=== PATIENT | female | born 1980 | race Caucasian/White ===

== ENCOUNTER 2016-08-12 20:27 | Emergency (ER) | payer MEDICAID, OTHER ==
[~2016-08-12 20:27] MED LIST: HYDR10SO PO; ZOFR4TAB3 SL
[2016-08-12 20:33] VITALS: BP 157/96; PULSE 107; RESP 20; TEMP 97.8; O2SAT 98
--- NOTE | 2016-08-12 20:49 | PD ---
HPI Chief Complaint: Anxiety Time Seen by Provider: 20:48 Travel History International Travel<30 days: No Contact w/Intl Traveler<30days: No Traveled to known affect area: No History of Present Illness HPI This 35-year-old female thinks she's been having a panic attack. She's been having some palpitations and fast heartbeat for a couple of days. Today she had some pain in her throat felt a little bit short of breath. The symptoms are resolving. She does have a history of panic attacks and has been on medications for the past but she is not sure what. Denies any drug use. There is no chance of PFSH Past Medical History Arthritis: No Blood Disorders: No Bipolar Disorder: Yes Anxiety: Yes Depression: Yes Heart Rhythm Problems: No Cancer: No Cardiac Catheterization: No High Cholesterol: No Chemotherapy: No Congestive Heart Failure: No Cerebrovascular Accident: No Diabetes: No (DENIES) Diminished Hearing: No Gastrointestinal Disorders: No Genitourinary: No Headaches: Yes Hypertension: No (DENIES) Immune Disorder: No Implanted Vascular Access Dvce: No Musculoskeletal: Yes (NECK STRAIN) Neurologic: Yes Psychiatric: Yes Reproductive: Yes (ENDOMETRIOSIS) Respiratory: No Immunizations Current: Yes Migraines: Yes Radiation Therapy: No Seizures: No LMP: MONTH AGO Menopausal: No : 3 Para: 3 Miscarriage: 0 : 0 Tubal Ligation: Yes (2005) Past Surgical History Abdominal Surgery: Yes (HERNIA REPAIR) Cardiac Surgery: No Coronary Artery Bypass Graft: No Ear Surgery: No Endocrine Surgery: No Eye Surgery: No Gynecologic Surgery: Yes (TUBAL LIGATION) Neurologic Surgery: No Oral Surgery: No Thoracic Surgery: No Other Surgery: Yes Social History Alcohol Use: Yes (OCCASIONALLY- mix drinks) Tobacco Use: No (quit 05/2014 smoked 1/2 pack every 2-3 days) Substance Use: No Allergies-Medications (Allergen,Severity, Reaction): Coded Allergies: Clindamycin (Verified Allergy, Severe, RASH, 08/12/16) Reported Meds & Prescriptions Reported Meds & Active Scripts Active No Active Prescriptions or Reported Medications Review of Systems General / Constitutional: No: Fever, Chills Eyes: No: Diploplia HENT: Positive: Headaches, Sore Throat Cardiovascular: Positive: Palpitations Respiratory: No: Cough Gastrointestinal: No: Vomiting, Diarrhea Skin: Positive Rash Hematologic/Lymphatic: No: Easy Bruising Physical Exam Narrative GENERAL: Well-developed female SKIN: Warm and dry. She is flushed and areas HEAD: Atraumatic. Normocephalic. EYES: Pupils equal and round. No scleral icterus. No injection or drainage. ENT: No nasal bleeding or discharge. Mucous membranes pink and moist. NECK: Trachea midline. No JVD. CARDIOVASCULAR: Regular rate and rhythm. No murmur appreciated. RESPIRATORY: No accessory muscle use. Clear to auscultation. Breath sounds equal bilaterally. GASTROINTESTINAL: Abdomen soft, non-tender, nondistended. Hepatic and splenic margins not palpable. MUSCULOSKELETAL: No obvious deformities. No clubbing. No cyanosis. No edema. NEUROLOGICAL: Awake and alert. No obvious cranial nerve deficits. Motor grossly within normal limits. Normal speech. PSYCHIATRIC: Appropriate mood and affect; insight and judgment normal. Data Data Last Documented VS Vital Signs Date Time Temp Pulse Resp B/P Pulse Ox O2 Delivery O2 Flow Rate FiO2 08/12/16 20:55 92 20 181/97 98 Room Air 08/12/16 20:33 97.8 Orders Complete Blood Count With Diff (08/12/16 20:48) Basic Metabolic Panel (Bmp) (08/12/16 20:48) Labs Laboratory Tests Test 08/12/16 20:55 White Blood Count 10.0 TH/MM3 Red Blood Count 4.63 MIL/MM3 Hemoglobin 13.5 GM/DL Hematocrit 39.5 % Mean Corpuscular Volume 85.3 FL Mean Corpuscular Hemoglobin 29.1 PG Mean Corpuscular Hemoglobin 34.1 % Concent Red Cell Distribution Width 13.4 % Platelet Count 343 TH/MM3 Mean Platelet Volume 7.6 FL Neutrophils (%) (Auto) 67.8 % Lymphocytes (%) (Auto) 23.4 % Monocytes (%) (Auto) 6.2 % Eosinophils (%) (Auto) 1.9 % Basophils (%) (Auto) 0.7 % Neutrophils # (Auto) 6.8 TH/MM3 Lymphocytes # (Auto) 2.3 TH/MM3 Monocytes # (Auto) 0.6 TH/MM3 Eosinophils # (Auto) 0.2 TH/MM3 Basophils # (Auto) 0.1 TH/MM3 CBC Comment DIFF FINAL Differential Comment Sodium Level 141 MEQ/L Potassium Level 3.7 MEQ/L Chloride Level 107 MEQ/L Carbon Dioxide Level 24.8 MEQ/L Anion Gap 9 MEQ/L Blood Urea Nitrogen 11 MG/DL Creatinine 0.90 MG/DL Estimat Glomerular Filtration 72 ML/MIN Rate Random Glucose 109 MG/DL Calcium Level 8.9 MG/DL [facility] Medical Decision Making Medical Screen Exam Complete: No Emergency Medical Condition: No Medical Record Reviewed: No Differential Diagnosis Differential includes anxiety, pharyngitis, Narrative Course Symptoms are consistent with anxiety. She appears quite stable at this time. His symptoms been going on for a couple of days but are subsiding. I will prescribe some Ativan in the event that the symptoms recur Diagnosis Primary Impression: Anxiety Scripts Lorazepam 1 Mg Tab1 Mg PO Q6H PRN (ANXIETY) #15 TAB Ref 0 Prov:Dev Zavala MD 08/12/16 Disposition: 01 DISCHARGE HOME Condition: Stable Dev Zavala MD Aug 12, 2016 20:49
[2016-08-12 20:55] VITALS: BP 181/97; PULSE 92; RESP 20; O2SAT 98
[2016-08-12 21:01] LABS: AUTOMATED NEUTROPHIL # 6.8 TH/MM3 (1.8-7.7); BASOPHIL # 0.1 TH/MM3 (0-0.2); BASOPHIL % 0.7 % (0.0-2.0); EOSINOPHIL # 0.2 TH/MM3 (0-0.4); EOSINOPHIL % 1.9 % (0.0-4.0); HEMATOCRIT 39.5 % (35.0-46.0); LYMPH % 23.4 % (9.0-44.0); LYMPHOCYTE # 2.3 TH/MM3 (1.0-4.8); MEAN CELL VOLUME 85.3 FL (80.0-100.0); MEAN CORPUSCULAR HEMOGLOBIN 29.1 PG (27.0-34.0); MEAN CORPUSCULAR HGB CONC 34.1 % (32.0-36.0); MONO % 6.2 % (0.0-8.0); NEUT % 67.8 % (16.0-70.0); PLATELET COUNT 343 TH/MM3 (150-450); RED BLOOD COUNT 4.63 MIL/MM3 (4.00-5.30); RED CELL DISTRIBUTION WIDTH 13.4 % (11.6-17.2)
[2016-08-12 21:08] LABS: HEMO FLAGS DIFF FINAL; POTASSIUM 3.7 MEQ/L (3.5-5.1)
[2016-08-12 21:11] LABS: BICARBONATE 24.8 MEQ/L (21.0-32.0)
[2016-08-12] MEDS ORDERED: LORA1TAB12 PO (21:22)
[2016-08-12] MEDS ORDERED: LORazepam 2 MG/ML VIAL IV PUSH ONE (21:30)
[2016-08-12 21:47] VITALS: BP 128/81; PULSE 81; RESP 18; O2SAT 98
--- NOTE | 2016-08-13 16:59 | EKG ---
Date Performed: 08/12/2016 Time Performed: 20:43:36 PTAGE: 35 years EKG: Sinus rhythm Compared to prior tracing no significant change Normal ECG PREVIOUS TRACING : 12/07/2014 16.20 DOCTOR: Aspen Ferreira Interpretating Date/Time 08/13/2016 16:55:59
== END 2016-08-12 22:14 | disposition home or self-care (01) ==
LOC: PHED 20:27
DX: F41.9 Anxiety disorder, unspecified (principal); R51 Headache; J02.9 Acute pharyngitis, unspecified
CPT/HCPCS: 80048; 85025; 93005; 96374; 99283; J2060

== ENCOUNTER 2016-11-07 20:07 | Emergency (ER) | payer MEDICAID, OTHER ==
[~2016-11-07] VITALS: Ht 160 cm; Wt 76.5 kg
[~2016-11-07 20:07] MED LIST changes: -HYDR10SO PO; +LORA1TAB12 PO; -ZOFR4TAB3 SL
[2016-11-07 20:48] VITALS: BP 131/91; PULSE 78; RESP 18; TEMP 98.9; O2SAT 99
[2016-11-07] MEDS ORDERED: LACTULOSE SYRUP 20 GM/30 ML CUP PO ONE (23:00)
[2016-11-07] MEDS ORDERED: SOD PHOSPHATE/SOD BIPHOSPHATE (ADULT) ENEMA 133ML RECTAL ONE (23:00)
[2016-11-07] MEDS ORDERED: LACT10SO PO (23:46)
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
[2016-11-08 00:15] VITALS: BP 130/78
== END 2016-11-08 00:15 | disposition home or self-care (01) ==
LOC: PHED 20:07
DX: K59.00 Constipation, unspecified (principal); Z98.51 Tubal ligation status; Z87.891 Personal history of nicotine dependence
CPT/HCPCS: 99283

== ENCOUNTER 2016-12-10 12:16 | Emergency (ER) | payer MEDICAID ==
[~2016-12-10] VITALS: Ht 160 cm; Wt 77.0 kg
[~2016-12-10 12:16] MED LIST changes: +LACT10SO PO; -LORA1TAB12 PO
[2016-12-10 12:20] VITALS: BP 167/89; PULSE 87; RESP 16; TEMP 98.2; O2SAT 99
[2016-12-10] MEDS ORDERED: MOTR200T4 PO (13:11)
[2016-12-10] MEDS ORDERED: ROBA500T PO (13:12)
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
== END 2016-12-10 13:24 | disposition home or self-care (01) ==
LOC: NEPK 12:16
DX: S16.1XXA Strain of muscle, fascia and tendon at neck level, initial encounter (principal); M62.838 Other muscle spasm; Z86.59 Personal history of other mental and behavioral disorders; Z87.39 Personal history of other diseases of the musculoskeletal system and connective tissue; Z86.69 Personal history of other diseases of the nervous system and sense organs; Z87.42 Personal history of other diseases of the female genital tract; Z87.891 Personal history of nicotine dependence; X58.XXXA Exposure to other specified factors, initial encounter
CPT/HCPCS: 99283

== ENCOUNTER 2016-12-27 13:27 | Emergency (ER) | payer MEDICAID ==
[~2016-12-27 13:27] MED LIST changes: -LACT10SO PO; +MOTR200T4 PO; +ROBA500T PO
[2016-12-27] MEDS ORDERED: SODIUM CHLOR 0.9% 1000 ML INJ 1,000 ML IV SCH (13:46)
[2016-12-27 13:59] VITALS: BP 108/76; PULSE 121; RESP 15; TEMP 100.7; O2SAT 96
[2016-12-27] MEDS ORDERED: SODIUM CHLORIDE 0.9% FLUSH 10 ML FLUSH IV FLUSH PRN (14:00)
[2016-12-27] MEDS ORDERED: KETOROLAC TROMETHAMINE 30 MG/ML (IVP) VIAL IVP ONE (14:00)
[2016-12-27] MEDS ORDERED: ONDANSETRON HCL 4 MG/2 ML VIAL IVP ONE (14:00)
[2016-12-27] MEDS ORDERED: SODIUM CHLOR 0.9% 1000 ML INJ 1,000 ML IV ONE (14:00)
[2016-12-27 14:10] VITALS: BP 118/72; PULSE 102; RESP 18; TEMP 99.2; O2SAT 96
[2016-12-27 14:16] LABS: AUTOMATED NEUTROPHIL # 7.8 TH/MM3 (1.8-7.7); BASOPHIL # 0.1 TH/MM3 (0-0.2); BASOPHIL % 0.8 % (0.0-2.0); EOSINOPHIL % 0.1 % (0.0-4.0); HEMATOCRIT 44.9 % (35.0-46.0); LYMPH % 6.8 % (9.0-44.0); LYMPHOCYTE # 0.6 TH/MM3 (1.0-4.8); MEAN CELL VOLUME 85.8 FL (80.0-100.0); MEAN CORPUSCULAR HEMOGLOBIN 27.9 PG (27.0-34.0); MEAN CORPUSCULAR HGB CONC 32.5 % (32.0-36.0); MONO % 4.9 % (0.0-8.0); NEUT % 87.4 % (16.0-70.0); PLATELET COUNT 308 TH/MM3 (150-450); RED BLOOD COUNT 5.23 MIL/MM3 (4.00-5.30); RED CELL DISTRIBUTION WIDTH 13.8 % (11.6-17.2); WHITE BLOOD COUNT 8.9 TH/MM3 (4.0-11.0)
[2016-12-27 14:23] LABS: HEMO FLAGS DIFF FINAL
[2016-12-27 14:26] LABS: CHLORIDE 104 MEQ/L (98-107); POTASSIUM 3.4 MEQ/L (3.5-5.1); SODIUM (NA) 139 MEQ/L (136-145)
[2016-12-27 14:29] LABS: ANION GAP 10 MEQ/L (5-15); BICARBONATE 25.5 MEQ/L (21.0-32.0)
[2016-12-27 14:30] LABS: BLOOD UREA NITROGEN 11 MG/DL (7-18)
[2016-12-27 14:32] LABS: ALT (GPT) 20 U/L (10-53); AST (GOT) 11 U/L (15-37); GLOMERULAR FILTRATION RATE 65 ML/MIN (>89)
[2016-12-27 14:34] LABS: TOTAL BILIRUBIN ADULT 0.7 MG/DL (0.2-1.0)
[2016-12-27 14:35] LABS: ALKALINE PHOSPHATASE 62 U/L (45-117)
[2016-12-27] MEDS ORDERED: LOPE-1 PO (14:44)
[2016-12-27] MEDS ORDERED: PROM25TA10 PO (14:44)
[2016-12-27] MEDS ORDERED: LACTCAP8 PO (14:44)
[2016-12-27] MEDS ORDERED: LOPERAMIDE HCL 2 MG CAP PO ONE (14:45)
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
[2016-12-27 15:29] VITALS: BP 123/62; PULSE 97; RESP 18; O2SAT 99
[2016-12-28] MEDS ORDERED: MACR100C2 PO (23:42)
[2016-12-28] MEDS ORDERED: ZOFR4TAB3 SL (23:42)
== END 2016-12-27 15:43 | disposition home or self-care (01) ==
LOC: PHED 13:27
DX: K52.9 Noninfective gastroenteritis and colitis, unspecified (principal); R11.10 Vomiting, unspecified
CPT/HCPCS: 80053; 83690; 85025; 96361; 96374; 96375; 99284; J1885; J2405; J7030

== ENCOUNTER 2016-12-28 21:54 | Emergency (ER) | payer MEDICAID ==
[~2016-12-28] VITALS: Ht 160 cm; Wt 77.2 kg
[~2016-12-28 21:54] MED LIST changes: +LACTCAP8 PO; +LOPE-1 PO; -MOTR200T4 PO; +PROM25TA10 PO; -ROBA500T PO
[2016-12-28 21:58] VITALS: BP 122/86; PULSE 103; RESP 18; TEMP 98.2; O2SAT 97
[2016-12-28] MEDS ORDERED: SODIUM CHLOR 0.9% 1000 ML INJ 1,000 ML IV ONE (22:42)
--- NOTE | 2016-12-28 23:01 | PD ---
HPI Chief Complaint: GI Complaint Time Seen by Provider: 22:42 Travel History International Travel<30 days: No Contact w/Intl Traveler<30days: No Traveled to known affect area: No History of Present Illness HPI 36-year-old female presents to the emergency department for complaint of persistent watery diarrhea since onset on . No known dietary indiscretion. No report of foreign travel or well water ingestion. No recent antibiotic use. Patient was seen in the emergency department yesterday and diagnosed with gastroenteritis encouraged to use a probiotic and Imodium for diarrhea. Was given a prescription for Phenergan for complaint of nausea and vomiting. Patient's had minimal nausea vomiting which has resolved but continues to have watery loose diarrhea. No report of hematemesis coffee- ground emesis melena or hematochezia. No reported dysuria frequency or urgency. Patient states symptoms began suddenly after fever 10 2F on . Symptoms began after eating lunch. No other coworkers or family members with similar symptoms. Patient states she's attempted to eat soup and broccoli with cheese soup without success. Patient has been taking fluid hydration. States due to persistent diarrhea returns to the emergency department for evaluation. Patient has had intermittent or complaint and cramping in her abdomen. No recurrent temperature elevation or fever. Crampy abdominal pain is described as 10 over 10 in intensity. PFSH Past Medical History Narrative Medical Bipolaranxiety depression migraine endometriosis musculoskeletal pain GC P3 Ab0 tubal ligation herniorrhaphy; no tobacco use no alcohol use no substance use Arthritis: No Blood Disorders: No Bipolar Disorder: Yes Anxiety: Yes Depression: Yes Heart Rhythm Problems: No Cancer: No Cardiac Catheterization: No High Cholesterol: No Chemotherapy: No Congestive Heart Failure: No Cerebrovascular Accident: No Diminished Hearing: No Gastrointestinal Disorders: No Genitourinary: No Headaches: Yes Immune Disorder: No Implanted Vascular Access Dvce: No Musculoskeletal: Yes (NECK STRAIN) Neurologic: Yes Psychiatric: Yes Reproductive: Yes (ENDOMETRIOSIS) Respiratory: No Immunizations Current: Yes Migraines: Yes Radiation Therapy: No Seizures: No ?: Not LMP: 1 WEEK AGO Menopausal: No : 3 Para: 3 Miscarriage: 0 : 0 Tubal Ligation: Yes (2005) Past Surgical History Abdominal Surgery: Yes (HERNIA REPAIR) Cardiac Surgery: No Coronary Artery Bypass Graft: No Ear Surgery: No Endocrine Surgery: No Eye Surgery: No Gynecologic Surgery: Yes (TUBAL LIGATION) Neurologic Surgery: No Oral Surgery: No Thoracic Surgery: No Other Surgery: Yes Family History Family Myocardial Infarction: Yes (FATHER HAD NE AT AGE 49) Social History Alcohol Use: No (RARELY) Tobacco Use: No (quit 05/2014 smoked 1/2 pack every 2-3 days) Substance Use: No Allergies-Medications (Allergen,Severity, Reaction): Coded Allergies: Clindamycin (Verified Allergy, Severe, RASH, 12/28/16) Reported Meds & Prescriptions Reported Meds & Active Scripts Active Probiotic (Lactobacillus Acidophilus) 1 Cap Cap 1 Cap PO TIDAC Imodium A-D (Loperamide HCl) 2 Mg Capsule 2 Mg PO Q6H PRN Phenergan (Promethazine HCl) 25 Mg Tablet 25 Mg PO Q6H PRN Review of Systems Except as stated in HPI: all other systems reviewed are Neg General / Constitutional: Positive: Fever (x 1 2 days ago) HENT: No: Congestion Cardiovascular: No: Chest Pain or Discomfort Respiratory: No: Shortness of Breath Gastrointestinal: Positive: Nausea, Vomiting (x2), Diarrhea (multiple watery), Abdominal Pain (crampy intermittent), No: Hematemesis, Hematochezia Genitourinary: No: Dysuria, Decreased Urinary Output Musculoskeletal: No: Myalgias, Arthralgias Skin: No Rash Neurologic: No: Weakness Hematologic/Lymphatic: No: Lymph Node Enlargement Physical Exam Narrative GENERAL: Well-developed well-nourished female in no acute distress no respiratory distress SKIN: Warm and dry. HEAD: Normocephalic. EYES: No scleral icterus. No injection or drainage. NECK: Supple, trachea midline. No JVD or lymphadenopathy. CARDIOVASCULAR: Regular rate and rhythm without murmurs, gallops, or rubs. RESPIRATORY: Breath sounds equal bilaterally. No accessory muscle use. GASTROINTESTINAL: Abdomen soft, increased bowel sounds, non-tender to palpation in all quadrants without guarding or rebound, nondistended. MUSCULOSKELETAL: No cyanosis, or edema. BACK: Nontender without obvious deformity. No CVA tenderness. Data Data Last Documented VS Vital Signs Date Time Temp Pulse Resp B/P Pulse Ox O2 Delivery O2 Flow Rate FiO2 12/28/16 23:06 Room Air 12/28/16 21:58 98.2 103 18 122/86 97 Orders Complete Blood Count With Diff (12/28/16 22:42) Comprehensive Metabolic Panel (12/28/16 22:42) Urinalysis - C+S If Indicated (12/28/16 22:42) Iv Access Insert/Monitor (12/28/16 22:42) Oximetry (12/28/16 22:42) Sodium Chlor 0.9% 1000 Ml Inj (Ns 1000 M (12/28/16 22:42) Enteric Path (Stool) (12/28/16 22:42) Magnesium (Mg) (12/28/16 22:42) Ed Urine Pregnancytest Poc (12/28/16 22:42) Ketorolac Inj (Toradol Inj) (12/28/16 23:30) Urine Culture (12/28/16 22:00) Potassium Chloride (Kcl) (12/28/16 23:45) Nitrofurantoin Monohyd Macrocr (Macrobid (12/28/16 23:45) Labs Laboratory Tests Test 12/28/16 12/28/16 22:00 23:00 Urine Color YELLOW Urine Turbidity CLOUDY Urine pH 6.0 Urine Specific [place] 1.025 Urine Protein 100 mg/dL Urine Glucose (UA) NEG mg/dL Urine Ketones TRACE mg/dL Urine Occult Blood MOD Urine Nitrite NEG Urine Bilirubin NEG Urine Leukocyte Esterase SMALL Urine RBC 10-14 /hpf Urine WBC 20-24 /hpf Urine Squamous Epithelial > 8 /hpf Cells Urine Bacteria FEW /hpf Urine Mucus MOD /lpf Microscopic Urinalysis Comment CULTURE INDICATED White Blood Count 7.3 TH/MM3 Red Blood Count 4.51 MIL/MM3 Hemoglobin 13.2 GM/DL Hematocrit 38.1 % Mean Corpuscular Volume 84.5 FL Mean Corpuscular Hemoglobin 29.3 PG Mean Corpuscular Hemoglobin 34.6 % Concent Red Cell Distribution Width 13.1 % Platelet Count 251 TH/MM3 Mean Platelet Volume 7.6 FL Neutrophils (%) (Auto) 76.6 % Lymphocytes (%) (Auto) 14.3 % Monocytes (%) (Auto) 7.8 % Eosinophils (%) (Auto) 0.6 % Basophils (%) (Auto) 0.7 % Neutrophils # (Auto) 5.6 TH/MM3 Lymphocytes # (Auto) 1.0 TH/MM3 Monocytes # (Auto) 0.6 TH/MM3 Eosinophils # (Auto) 0.0 TH/MM3 Basophils # (Auto) 0.1 TH/MM3 CBC Comment DIFF FINAL Differential Comment Sodium Level 142 MEQ/L Potassium Level 3.3 MEQ/L Chloride Level 112 MEQ/L Carbon Dioxide Level 21.9 MEQ/L Anion Gap 8 MEQ/L Blood Urea Nitrogen 6 MG/DL Creatinine 0.82 MG/DL Estimat Glomerular Filtration 80 ML/MIN Rate Random Glucose 92 MG/DL Calcium Level 8.4 MG/DL Magnesium Level 2.1 MG/DL Total Bilirubin 0.3 MG/DL Aspartate Amino Transf 16 U/L (AST/SGOT) Alanine Aminotransferase 20 U/L (ALT/SGPT) Alkaline Phosphatase 50 U/L Total Protein 7.6 GM/DL Albumin 3.5 GM/DL MDM Medical Decision Making Medical Screen Exam Complete: Yes Emergency Medical Condition: Yes Medical Record Reviewed: Yes Interpretation(s) UA: cx indicated; wbc's few bacteria; >8 squam epi's Differential Diagnosis Viral syndrome, gastroenteritis, dysentery, colitis, electrolyte disturbance, dehydration Narrative Course IV access obtained specimens collected and sent for resulting normal saline bolus administered Patient given oral potassium replacement Patient given first dose of antibiotic in the emergency department At 11:44 PM patient is clinically improved and stable for outpatient management Diagnosis Primary Impression: Gastroenteritis Additional Impression: UTI (urinary tract infection) with pyuria Referrals: Primary Care Physician 2 days Patient Instructions: General Instructions Departure Forms: Tests/Procedures, Work Release Special Instructions: no work x 2 days Additional Instructions: Follow clear liquid diet-- Jell-O, popsicles, Gatorade, chicken broth and advance as tolerated to bland/Jey diet--plain saltines, rice, grits, oatmeal, cream of wheat avoiding any dairy or bladder added to foods Follow-up with primary care provider call office on Friday No work 2 days Take Zofran as prescribed as needed for nausea and/or vomiting Monitor temperature for fever take acetaminophen/Tylenol every 4 hours for fever 100.4F or greater or for minor pain; or may take ibuprofen/Advil/Motrin every 6-8 hours as needed for fever 100.4F or greater or for pain associated with inflammation, as tolerated Med/Other Pt SpecificInfo: Prescription(s) given Scripts Ondansetron Odt (Zofran Odt)4 Mg Tab4 Mg SL Q6HR PRN (Nausea/Vomiting) #10 TAB Ref 0 Prov:India Hopkins MD 12/28/16 Nitrofurantoin Monohydrate Macrocrystals (Macrobid)100 Mg [id number] Mg PO BID #6 CAP Ref 0 Prov:India Hopkins MD 12/28/16 Disposition: 01 DISCHARGE HOME Condition: Stable India Hopkins MD Dec 28, 2016 23:00
[2016-12-28 23:10] LABS: AUTOMATED NEUTROPHIL # 5.6 TH/MM3 (1.8-7.7); BASOPHIL # 0.1 TH/MM3 (0-0.2); BASOPHIL % 0.7 % (0.0-2.0); EOSINOPHIL % 0.6 % (0.0-4.0); HEMATOCRIT 38.1 % (35.0-46.0); LYMPH % 14.3 % (9.0-44.0); MEAN CELL VOLUME 84.5 FL (80.0-100.0); MEAN CORPUSCULAR HEMOGLOBIN 29.3 PG (27.0-34.0); MEAN CORPUSCULAR HGB CONC 34.6 % (32.0-36.0); MONO % 7.8 % (0.0-8.0); NEUT % 76.6 % (16.0-70.0); PLATELET COUNT 251 TH/MM3 (150-450); RED BLOOD COUNT 4.51 MIL/MM3 (4.00-5.30); RED CELL DISTRIBUTION WIDTH 13.1 % (11.6-17.2); WHITE BLOOD COUNT 7.3 TH/MM3 (4.0-11.0)
[2016-12-28 23:10] LABS: GLUCOSE,URINE NEG (NEG); KETONE, URINE TRACE mg/dL (NEG); NITRITE,URINE NEG (NEG)
[2016-12-28 23:17] LABS: BLOOD, URINE MOD (NEG)
[2016-12-28 23:17] LABS: HEMO FLAGS DIFF FINAL
[2016-12-28 23:19] LABS: URINE COLOR YELLOW (YELLW/STRAW)
[2016-12-28 23:20] LABS: MUCUS URINE MOD /lpf (OCC)
[2016-12-28 23:21] LABS: BACTERIA, URINE FEW /hpf; COMMENT (UR) CULTURE INDICATED; CULTURE IF INDICATED CULTURE INDICATED; SQUAMOUS EPITHELIAL CELL URINE > 8 /hpf (0-5)
[2016-12-28 23:25] VITALS: BP 140/76; PULSE 88; RESP 18; O2SAT 97
[2016-12-28] MEDS ORDERED: KETOROLAC TROMETHAMINE 30 MG/ML (IVP) VIAL IV PUSH ONE (23:30)
[2016-12-28 23:32] LABS: ALKALINE PHOSPHATASE 50 U/L (45-117); ALT (GPT) 20 U/L (10-53); ANION GAP 8 MEQ/L (5-15); AST (GOT) 16 U/L (15-37); BICARBONATE 21.9 MEQ/L (21.0-32.0); BLOOD UREA NITROGEN 6 MG/DL (7-18); CHLORIDE 112 MEQ/L (98-107); GLOMERULAR FILTRATION RATE 80 ML/MIN (>89); MAGNESIUM 2.1 MG/DL (1.5-2.5); POTASSIUM 3.3 MEQ/L (3.5-5.1); SODIUM (NA) 142 MEQ/L (136-145); TOTAL BILIRUBIN ADULT 0.3 MG/DL (0.2-1.0)
[2016-12-28] MEDS ORDERED: MACR100C2 PO (23:42)
[2016-12-28] MEDS ORDERED: ZOFR4TAB3 SL (23:42)
[2016-12-28] MEDS ORDERED: NITROFURANTOIN MONOHYD MACROCR 100 MG CAP PO ONE (23:45)
[2016-12-28] MEDS ORDERED: POTASSIUM CHLORIDE 20 MEQ CONTROLLED RELEASE TAB PO ONE (23:45)
[2016-12-29 00:30] VITALS: RESP 17
== END 2016-12-29 00:01 | disposition home or self-care (01) ==
LOC: PHED 21:54
DX: K52.9 Noninfective gastroenteritis and colitis, unspecified (principal); N39.0 Urinary tract infection, site not specified; B96.89 Other specified bacterial agents as the cause of diseases classified elsewhere; Z86.59 Personal history of other mental and behavioral disorders; Z87.39 Personal history of other diseases of the musculoskeletal system and connective tissue; Z86.69 Personal history of other diseases of the nervous system and sense organs; Z87.42 Personal history of other diseases of the female genital tract; Z87.891 Personal history of nicotine dependence
CPT/HCPCS: 80053; 81001; 83735; 84703; 85025; 87077; 87086; 87186; 87506; 96361; 96374; 99284; J1885; J7030

== ENCOUNTER 2017-03-08 23:34 | Emergency (ER) | payer MEDICAID ==
[~2017-03-08] VITALS: Ht 160 cm; Wt 81.0 kg
[~2017-03-08 23:34] MED LIST changes: +MACR100C2 PO; +ZOFR4TAB3 SL
[2017-03-08 23:38] VITALS: BP 127/60; PULSE 95; RESP 18; TEMP 99.4; O2SAT 97
[2017-03-09 00:03] LABS: BLOOD, URINE TRACE (NEG); GLUCOSE,URINE NEG (NEG); KETONE, URINE NEG (NEG); NITRITE,URINE NEG (NEG)
[2017-03-09 00:13] LABS: URINE COLOR YELLOW (YELLW/STRAW)
[2017-03-09 00:14] LABS: BACTERIA, URINE MOD /hpf; COMMENT (UR) CULTURE INDICATED; CULTURE IF INDICATED CULTURE INDICATED; SQUAMOUS EPITHELIAL CELL URINE > 8 /hpf (0-5)
[2017-03-09] MEDS ORDERED: cefTRIAXone INJ 1,000 MG in SODIUM CHLORIDE 0.9% INJ 100 ML IV ONE (00:30)
[2017-03-09] MEDS ORDERED: KETOROLAC TROMETHAMINE 30 MG/ML (IVP) VIAL IV PUSH ONE (00:30)
[2017-03-09 01:06] VITALS: BP 112/75; PULSE 71; RESP 18; TEMP 98.2; O2SAT 99
[2017-03-09 01:06] LABS: POTASSIUM 3.6 MEQ/L (3.5-5.1)
[2017-03-09 01:09] LABS: BICARBONATE 24.9 MEQ/L (21.0-32.0)
--- NOTE | 2017-03-09 01:24 | RADRPT ---
EXAM DATE/TIME: 03/09/2017 00:46 [facility] COMPARISON: CT ABDOMEN & PELVIS W/O CONTRAST, January 31, 2015, 13:22. INDICATIONS : Back pain and frequent urination for 2 weeks. ORAL CONTRAST: No oral contrast ingested. RADIATION DOSE: 17.48 CTDIvol (mGy) MEDICAL HISTORY : endometriosis SURGICAL HISTORY : Umbilical hernia repair. Tubal ligation. ENCOUNTER: Initial ACUITY: 2 weeks PAIN SCALE: 9/10 LOCATION: Bilateral flank mostly left side TECHNIQUE: Volumetric scanning of the abdomen and pelvis was performed. Using automated exposure control and ad justment of the mA and/or kV according to patient size, radiation dose was kept as low as reasonably achievable to obtain optimal diagnostic quality images. DICOM format image data is available electro nically for review and comparison. FINDINGS: LOWER LUNGS: The visualized lower lungs are clear. LIVER: Homogeneous density without lesion. There is no dilation of the biliary tree. No calcified gallston es. SPLEEN: Normal size without lesion. PANCREAS: Within normal limits. KIDNEYS: Normal in size and shape. Bilateral, nonobstructing renal calculi, the largest identified in the righ t midpole measuring 8 mm in diameter. ADRENAL GLANDS: Within normal limits. VASCULAR: There is no aortic aneurysm. BOWEL/MESENTERY: The stomach, small bowel, and colon demonstrate no acute abnormality. There is no free intraperitone al air or fluid. ABDOMINAL WALL: Within normal limits. RETROPERITONEUM: There is no lymphadenopathy. BLADDER: No wall thickening or mass. REPRODUCTIVE: Within normal limits. INGUINAL: There is no lymphadenopathy or hernia. MUSCULOSKELETAL: Within normal limits for patient age. CONCLUSION: 1. Stable bilateral nonobstructing renal calculi with the largest in the right midpole measuring 8 mm in diameter. 2. Otherwise negative with no acute intraperitoneal or pelvic process to explain clinical symptoms. Hermilo Duvall MD on March 09, 2017 at 1:20 Board Certified Radiologist. This report was verified electronically.
--- NOTE | 2017-03-09 01:32 | PD ---
HPI Chief Complaint: Complaint Time Seen by Provider: 00:27 Travel History International Travel<30 days: No Contact w/Intl Traveler<30days: No Traveled to known affect area: No History of Present Illness HPI 36-year-old female presents to the emergency department by private transportation for complaint of progressively worsening left-sided back pain for 2 weeks. Patient does not report any referred neck jaw back shoulder arm or lower extremity pain denies any lower extremity numbness tingling or weakness. Patient denies any saddle anesthesia or bladder or bowel dysfunction. Patient denies any injury or fall. She denies any dysuria frequency urgency or hematuria. Patient denies . Patient states that pain is severe and not responsive to [id number] pain medications. Patient is also prior history of relief. Abdominal pain. Symptoms are sudden onset progressively worsening. Patient denies known ruptured ovarian cyst history patient does reportedly have history of endometriosis denies history of ovarian cyst. Patient is status post tubal ligation. Last period was normal for her and reportedly due any time. There is been no vaginal bleeding or vaginal discharge. Patient is unable to identify exacerbating or alleviating factors. Patient rates pain 8/10 intensity. PFSH Past Medical History Narrative Medical Bipolar disorder anxiety depression musculoskeletal pain migraines and endometriosis tubal [id number]; no tobacco use; nursing notes reviewed Arthritis: No Blood Disorders: No Bipolar Disorder: Yes Anxiety: Yes Depression: Yes Heart Rhythm Problems: No Cancer: No Cardiac Catheterization: No High Cholesterol: No Chemotherapy: No Congestive Heart Failure: No Cerebrovascular Accident: No Diminished Hearing: No Gastrointestinal Disorders: No Genitourinary: No Headaches: Yes Heparin Induced Thrombocytopen: No Immune Disorder: No Implanted Vascular Access Dvce: No Musculoskeletal: Yes (NECK STRAIN) Neurologic: Yes Psychiatric: Yes Reproductive: Yes (ENDOMETRIOSIS) Respiratory: No Immunizations Current: Yes Migraines: Yes Radiation Therapy: No Seizures: No ?: Not Menopausal: No : 3 Para: 3 Miscarriage: 0 : 0 Tubal Ligation: Yes (2005) Past Surgical History Abdominal Surgery: Yes (HERNIA REPAIR) Cardiac Surgery: No Coronary Artery Bypass Graft: No Ear Surgery: No Endocrine Surgery: No Eye Surgery: No Gynecologic Surgery: Yes (TUBAL LIGATION) Neurologic Surgery: No Oral Surgery: No Thoracic Surgery: No Other Surgery: Yes Family History Family Myocardial Infarction: Yes (FATHER HAD [place] AT AGE 49) Social History Alcohol Use: No (RARELY) Tobacco Use: No (quit 05/2014 smoked 1/2 pack every 2-3 days) Substance Use: No Allergies-Medications (Allergen,Severity, Reaction): Coded Allergies: clindamycin (Verified Allergy, Severe, RASH, 03/08/17) Reported Meds & Prescriptions Reported Meds & Active Scripts Active Macrobid (Nitrofurantoin Monoh/Nitrofur Macro) 100 Mg Cap 100 Mg PO BID Robaxin (Methocarbamol) 750 Mg Tab 750 Mg PO Q6HR Zofran Odt (Ondansetron Odt) 4 Mg Tab 4 Mg SL Q6HR PRN Macrobid (Nitrofurantoin Monoh/Nitrofur Macro) 100 Mg Cap 100 Mg PO BID Probiotic (Lactobacillus Acidophilus) 1 Cap Cap 1 Cap PO TIDAC Imodium A-D (Loperamide HCl) 2 Mg Capsule 2 Mg PO Q6H PRN Phenergan (Promethazine HCl) 25 Mg Tablet 25 Mg PO Q6H PRN Review of Systems Except as stated in HPI: all other systems reviewed are Neg General / Constitutional: No: Fever, Chills Eyes: No: Visual changes HENT: No: Headaches Cardiovascular: No: Chest Pain or Discomfort Respiratory: No: Shortness of Breath Gastrointestinal: No: Abdominal Pain Genitourinary: Positive: Flank Pain, No: Hematuria Musculoskeletal: Positive: Pain (back) Skin: No Rash Neurologic: No: Weakness Psychiatric: No: Anxiety Hematologic/Lymphatic: No: Easy Bruising Physical Exam Narrative GENERAL: Well-developed well-nourished female in no acute distress no respiratory distress SKIN: Warm and dry. HEAD: Normocephalic. EYES: No scleral icterus. No injection or drainage. NECK: Supple, trachea midline. No JVD or lymphadenopathy. CARDIOVASCULAR: Regular rate and rhythm without murmurs, gallops, or rubs. RESPIRATORY: Breath sounds equal bilaterally. No accessory muscle use. GASTROINTESTINAL: Abdomen soft, non-tender, nondistended. MUSCULOSKELETAL: No cyanosis, or edema. BACK: Nontender without obvious deformity. Mild discomfort with straight leg raising bilaterally. Motor 5 over 5 bilateral upper extremities and lower extremities. DTRs 2+ and equal bilateral upper extremity lower extremities without clonus. Sensory exam grossly intact as tested. No CVA tenderness. Data Data Last Documented VS Vital Signs Date Time Temp Pulse Resp B/P Pulse Ox O2 Delivery O2 Flow Rate FiO2 03/09/17 01:06 98.2 71 18 112/75 99 Room Air Orders Urinalysis - C+S If Indicated (03/08/17 23:50) Ed Urine Pregnancytest Poc (03/08/17 23:56) Urine Culture (03/08/17 23:40) Ct Abd/Pel W/O Iv Contrast (03/09/17 ) ^ Saline Lock (03/09/17 00:27) Ketorolac Inj (Toradol Inj) (03/09/17 00:30) Ceftriaxone Inj (Rocephin Inj) (03/09/17 00:30) Basic Metabolic Panel (Bmp) (03/09/17 00:29) Labs Laboratory Tests Test 03/08/17 03/09/17 23:40 00:45 Urine Color YELLOW Urine Turbidity CLOUDY Urine pH 6.0 Urine Specific [place] 1.017 Urine Protein NEG mg/dL Urine Glucose (UA) NEG mg/dL Urine Ketones NEG mg/dL Urine Occult Blood TRACE Urine Nitrite NEG Urine Bilirubin NEG Urine Leukocyte Esterase SMALL Urine RBC 3-5 /hpf Urine WBC 6-8 /hpf Urine Squamous Epithelial > 8 /hpf Cells Urine Bacteria MOD /hpf Microscopic Urinalysis Comment CULTURE INDICATED Sodium Level 138 MEQ/L Potassium Level 3.6 MEQ/L Chloride Level 106 MEQ/L Carbon Dioxide Level 24.9 MEQ/L Anion Gap 7 MEQ/L Blood Urea Nitrogen 15 MG/DL Creatinine 0.87 MG/DL Estimat Glomerular Filtration 75 ML/MIN Rate Random Glucose 106 MG/DL Calcium Level 8.7 MG/DL [facility] Medical Decision Making Medical Screen Exam Complete: Yes Emergency Medical Condition: Yes Medical Record Reviewed: Yes Interpretation(s) left hand xr: CONCLUSION: 1. Stable bilateral nonobstructing renal calculi with the largest in the right midpole measuring 8 mm in diameter. 2. Otherwise negative with no acute intraperitoneal or pelvic process to explain clinical symptoms. Hermilo Duvall MD on March 09, 2017 at 1:20 Board Certified Radiologist. This report was verified electronically. Vital Signs Date Time Temp Pulse Resp B/P Pulse Ox O2 Delivery O2 Flow Rate FiO2 03/09/17 01:06 98.2 71 18 112/75 99 Room Air 03/08/17 23:38 99.4 95 18 127/60 97 CBC & BMP Diagram 03/09/17 00:45 Urinalysis: Small blood and moderate leukocyte esterase moderate bacteria and white blood cells; culture indicated Differential Diagnosis Flank pain musculoskeletal pain sciatica HNP renal colic pyelonephritis UTI ruptured ovarian cyst ectopic Narrative Course Patient aware of lab results and imaging results and is stable for outpatient management Diagnosis Primary Impression: Back pain Additional Impression: UTI (urinary tract infection) Referrals: Primary Care Physician 2 days Patient Instructions: General Instructions Additional Instructions: Increase fluid hydration Take ibuprofen 800 mg as often as every 8 hours as needed for pain associated with inflammation Use muscle relaxant as prescribed Complete course of antibiotic as prescribed Take acetaminophen/Tylenol as needed for fever 100.4F or greater Follow-up with her primary care provider Return to the emergency department for any concerns or change in condition Med/Other Pt SpecificInfo: Prescription(s) given Scripts Nitrofurantoin Monohydrate Macrocrystals (Macrobid)100 Mg [id number] Mg PO BID #14 CAP Ref 0 Prov:India Hopkins MD 03/09/17 Methocarbamol (Robaxin)750 Mg [id number] Mg PO Q6HR #12 TAB Ref 0 Prov:India Hopkins MD 03/09/17 Disposition: 01 DISCHARGE HOME Condition: Stable India Hopkins MD Mar 09, 2017 01:32
[2017-03-09] MEDS ORDERED: MACR100C2 PO (01:36)
[2017-03-09] MEDS ORDERED: ROBA750T PO (01:36)
== END 2017-03-09 01:50 | disposition home or self-care (01) ==
LOC: PHED 23:34
DX: M54.9 Dorsalgia, unspecified (principal); N39.0 Urinary tract infection, site not specified; B96.89 Other specified bacterial agents as the cause of diseases classified elsewhere
CPT/HCPCS: 74176; 80048; 81001; 84703; 87086; 96365; 96375; 99285; J0696; J1885

== ENCOUNTER 2017-11-29 18:56 | Emergency (ER) | payer SELFPAY ==
[~2017-11-29] VITALS: Ht 160 cm; Wt 83.2 kg
[~2017-11-29 18:56] MED LIST changes: +ROBA750T PO
[2017-11-29 19:06] VITALS: BP 158/72; PULSE 87; RESP 18; TEMP 98.8; O2SAT 99
--- NOTE | 2017-11-29 19:48 | RADRPT ---
EXAM DATE/TIME: 11/29/2017 19:36 [facility] COMPARISON: No previous studies available for comparison. INDICATIONS : Trauma to foot. MEDICAL HISTORY : None. SURGICAL HISTORY : None. ENCOUNTER: Initial ACUITY: 3 days PAIN SCORE: 8/10 LOCATION: Left foot, dorsal FINDINGS: Three view examination of the left foot demonstrates no soft tissue swelling, dislocation, or fractur e. The tarsal bones appear intact. The interphalangeal and metatarsophalangeal joints are intact. The calcaneus is intact. Bony mineralization is normal. CONCLUSION: No acute fracture or joint dislocation. Reynaldo Lemons MD on November 29, 2017 at 19:44 Board Certified Radiologist. This report was verified electronically.
--- NOTE | 2017-11-29 19:58 | PD ---
HPI Chief Complaint: Injury Time Seen by Provider: 19:33 Travel History International Travel<30 days: No Contact w/Intl Traveler<30days: No Traveled to known affect area: No History of Present Illness HPI This is a 37-year-old female here with left foot pain times 4 days. She reports a heavy object fell onto the foot causing immediate pain. She believed the area would heal but she has had persistent pain. She was concerned the area microfracture. Pain is constant, throbbing localized to the dorsal aspect of the foot and occasionally radiates up the hunter. Severity is mild. Aggravated by palpation of the area relieved with rest. She has been ambulating on the extremity since. no reported paresthesia or weakness of the foot. PFSH Past Medical History Arthritis: No Blood Disorders: No Bipolar Disorder: Yes Anxiety: Yes Depression: Yes Heart Rhythm Problems: No Cancer: No Cardiac Catheterization: No High Cholesterol: No Chemotherapy: No Congestive Heart Failure: No Cerebrovascular Accident: No Diminished Hearing: No Gastrointestinal Disorders: No Genitourinary: No Headaches: Yes Heparin Induced Thrombocytopen: No Immune Disorder: No Implanted Vascular Access Dvce: No Musculoskeletal: Yes (NECK STRAIN) Neurologic: Yes Psychiatric: Yes Reproductive: Yes (ENDOMETRIOSIS) Respiratory: No Immunizations Current: Yes Migraines: Yes Radiation Therapy: No Seizures: No ?: Not LMP: 11/23/17 Menopausal: No : 3 Para: 3 Miscarriage: 0 : 0 Tubal Ligation: Yes (2005) Past Surgical History Abdominal Surgery: Yes (HERNIA REPAIR) Cardiac Surgery: No Coronary Artery Bypass Graft: No Ear Surgery: No Endocrine Surgery: No Eye Surgery: No Gynecologic Surgery: Yes (TUBAL LIGATION) Neurologic Surgery: No Oral Surgery: No Thoracic Surgery: No Other Surgery: Yes Family History Family Myocardial Infarction: Yes (FATHER HAD [place] AT AGE 49) Social History Alcohol Use: No (RARELY) Tobacco Use: No (quit 05/2014 smoked 1/2 pack every 2-3 days) Substance Use: No Allergies-Medications (Allergen,Severity, Reaction): Coded Allergies: clindamycin (Verified Allergy, Severe, RASH, 11/29/17) Reported Meds & Prescriptions Reported Meds & Active Scripts Active Macrobid (Nitrofurantoin Monoh/Nitrofur Macro) 100 Mg Cap 100 Mg PO BID Robaxin (Methocarbamol) 750 Mg Tab 750 Mg PO Q6HR Zofran Odt (Ondansetron Odt) 4 Mg Tab 4 Mg SL Q6HR PRN Macrobid (Nitrofurantoin Monoh/Nitrofur Macro) 100 Mg Cap 100 Mg PO BID Probiotic (Lactobacillus Acidophilus) 1 Cap Cap 1 Cap PO TIDAC Imodium A-D (Loperamide HCl) 2 Mg Capsule 2 Mg PO Q6H PRN Phenergan (Promethazine HCl) 25 Mg Tablet 25 Mg PO Q6H PRN Review of Systems Except as stated in HPI: all other systems reviewed are Neg General / Constitutional: No: Fever Eyes: No: Visual changes HENT: No: Headaches Cardiovascular: No: Chest Pain or Discomfort Respiratory: No: Shortness of Breath Gastrointestinal: No: Abdominal Pain Genitourinary: No: Dysuria Musculoskeletal: Positive: Pain (Left foot pain) Skin: No Rash Physical Exam Narrative GENERAL: Alert and well-appearing 37-year-old female SKIN: Warm and dry. HEAD: Normocephalic. Atraumatic EYES: No injection or drainage. NECK: Supple MUSCULOSKELETAL: No cyanosis, or edema. LLE: + Tenderness to the dorsal aspect of the foot. No obvious swelling or ecchymosis. Palpable DP pulse. Can freely wiggle the toes. Normal sensation. Brisk cap refill. Data Data Last Documented VS Vital Signs Date Time Temp Pulse Resp B/P (MAP) Pulse Ox O2 Delivery O2 Flow Rate FiO2 11/29/17 19:06 98.8 87 18 158/72 (100) 99 Orders Orders Foot, Complete ([id number]) (11/29/17 ) [facility] Medical Decision Making Medical Screen Exam Complete: Yes Emergency Medical Condition: Yes Differential Diagnosis Foot contusion, foot fracture, midfoot sprain Narrative Course 37-year-old female left foot pain after dropping heavy object onto the foot several days ago. Extremities neurovascularly intact. X-rays negative for fracture. She will be treated for effusion. Diagnosis Primary Impression: Foot contusion Qualified Codes: S90.32XA - Contusion of left foot, initial encounter Referrals: Primary Care Physician Additional Instructions: Rest, ice, elevate the foot. Ibuprofen 800 mg every 6-8 hours as needed for pain. Disposition: 01 DISCHARGE HOME Condition: Stable Brooklyn Jewell November 29, 2017 19:58
--- NOTE | 2017-11-29 21:44 | PD ---
Physical Exam Narrative Please see mid-level provider note for complete history, physical and disposition. I evaluated this patient. Briefly patient presented to the emergency department because of heavy object fell on her left foot approximately days ago. He has had increased pain in that foot since per he was afebrile slightly hypertensive at 158/72, mainly vital signs stable. On exam positive DP pulse left foot, sensation intact, refill less than 3 seconds, small area of swelling on the dorsum of the left midfoot with tenderness to palpation. X-rays were negative for any fracture or dislocation. Advised to take pain medication for pain and follow-up as needed. Data Data Last Documented VS Vital Signs Date Time Temp Pulse Resp B/P (MAP) Pulse Ox O2 Delivery O2 Flow Rate FiO2 11/29/17 19:06 98.8 87 18 158/72 (100) 99 Orders Orders Foot, Complete ([id number]) (11/29/17 ) MDM Supervised Visit with KALEIGH: Yes Diagnosis Primary Impression: Foot contusion Qualified Codes: S90.32XA - Contusion of left foot, initial encounter Referrals: Primary Care Physician Patient Instructions: General Instructions, Foot Contusion (ED), RICE Therapy ( ED) Departure Forms: Tests/Procedures Additional Instruction: Rest, ice, elevate the foot. Ibuprofen 800 mg every 6-8 hours as needed for pain. Disposition: 01 DISCHARGE HOME Condition: Stable Debbie Blunt MD November 29, 2017 21:44
== END 2017-11-29 20:15 | disposition home or self-care (01) ==
LOC: PHEFT 18:56
DX: S90.32XA Contusion of left foot, initial encounter (principal); W20.8XXA Other cause of strike by thrown, projected or falling object, initial encounter; F31.9 Bipolar disorder, unspecified; F41.9 Anxiety disorder, unspecified; Z87.891 Personal history of nicotine dependence
CPT/HCPCS: 73630; 99283